=== PATIENT | male | born 1985 | race Caucasian/White ===

== ENCOUNTER 2017-12-28 10:20 | Emergency (ER) | payer BC ==
[2017-12-28 12:41] VITALS: BP 140/72
--- NOTE | 2017-12-28 12:54 | UC ---
Back Pain HPI - HPI Summary HPI Summary: 32 yo male with the onset of LBP yesterday after plowing with a 4 -vasquez No bowel or bladder dysfunction no leg pain or parethesias no upper back pain pain most noticable when he attempt to get in and out of his pickup - History of Current Complaint Chief Complaint: UCBackPain Stated Complaint: BACK PAIN Time Seen by Provider: 12/28/17 12:36 Hx Obtained From: Patient Onset/Duration: Gradual Onset, Lasting Hours Timing: Constant Severity Initially: Moderate Severity Currently: Moderate Pain Intensity: 4 Pain Scale Used: 0-10 Numeric Back Pain: Is Diffuse Character: Aching, Throbbing, Spasmodic Aggravating Factor(s): Movement Alleviating Factor(s): Rest Associated Signs And Symptoms: Positive: Negative Related History: Similar Episode Dx As - back strain - Allergies/Home Medications Allergies/Adverse Reactions: Allergies Allergy/AdvReac Type Severity Reaction Status Date / Time No Known Allergies Allergy Verified 12/28/17 12:30 PMH/Surg Hx/FS Hx/Imm Hx Previously Healthy: Yes - hx cat scratch fever - Surgical History Surgical History: Yes Surgery Procedure, Year, and Place: 2003, [facility] FROM [facility] (r/t cat scratch fever). legs veins stripped 2011 - Family History Known Family History: Positive: Hypertension, Diabetes Negative: Cardiac Disease - Social History Alcohol Use: Occasionally Substance Use Type: None Smoking Status (MU): Never Smoked Tobacco Type: Smokeless Tobacco - Immunization History Most Recent Influenza Vaccination: None Most Recent Tetanus Shot: Jul 2016 Most Recent Pneumonia Vaccination: None Review of Systems Constitutional: Negative Skin: Negative Eyes: Negative ENT: Negative Respiratory: Negative Cardiovascular: Negative Gastrointestinal: Negative Genitourinary: Negative Motor: Negative Neurovascular: Negative Musculoskeletal: Myalgia Neurological: Negative Psychological: Negative Is Patient Immunocompromised?: No All Other Systems Reviewed And Are Negative: Yes Physical Exam Triage Information Reviewed: Yes Appearance: Well-Appearing, No Pain Distress, Well-Nourished, Other: - BMI 45 Vital Signs: Initial Vital Signs Temp 98.5 F 12/28/17 12:34 Pulse 98 12/28/17 12:34 Resp 18 12/28/17 12:34 BP 140/72 12/28/17 12:34 Pulse Ox 98 12/28/17 12:34 Eye Exam: Normal ENT: Positive: Hearing grossly normal. Negative: Nasal congestion, Nasal drainage, Trismus, Muffled voice, Hoarse voice Neck: Positive: Supple, Nontender Respiratory: Positive: Lungs clear, Normal breath sounds, No respiratory distress, No accessory muscle use Cardiovascular: Positive: RRR, No Murmur Musculoskeletal: Positive: ROM Intact, No Edema, Other: - normal gait Neurological: Positive: Alert Psychological Exam: Normal Skin Exam: Normal Back Pain Course/Dx - Differential Dx/Diagnosis Provider Diagnoses: acute lumbar strain Discharge - Discharge Plan Condition: Stable Disposition: HOME Prescriptions: Cyclobenzaprine TAB* [Flexeril TAB*] 5 - 10 mg PO TID PRN #15 tab PRN Reason: Spasms Naproxen Sodium [Naproxen Sodium 500 MG TAB] 500 mg PO BID PRN #30 tab PRN Reason: Pain Patient Education Materials: Low Back Strain (ED) Forms: *Work Release Referrals: Donaldo Alvarez PA [Primary Care Provider] - 2 Weeks (you BP was high and should be followed) Images Front/Back of Body, Lg ([place]): 1 - pain here, (-) SLR, sensaton and DTRs intact
== END 2017-12-28 13:02 | disposition home or self-care (01) ==
LOC: UCCORT 10:20
DX: S33.5XXA Sprain of ligaments of lumbar spine, initial encounter (principal); X58.XXXA Exposure to other specified factors, initial encounter; Y93.89 Activity, other specified; Y92.9 Unspecified place or not applicable
CPT/HCPCS: 99212; G0463